=== PATIENT | female | born 1980 | race African-American/Black ===

== ENCOUNTER → 2018-11-24 | Day surgery (SDC) | payer BC ==
[~2018-11-24] MED LIST: ACETAMINOPHEN/CODEINE 300MG - 30MG TAB ONE; CEFAZOLIN SOD 1 GM/NS 50ML 50 ML IV ONE; DEXAMETHASONE SOD PHOS INJ 4 MG/ML VIAL ONE; FENTANYL CITRATE/PF 100MCG/2 ML INJ ONE; HYDROMORPHONE 2MG/ML 2 MG/ML ML ONE; IBUPROFEN400 MG PO; KETOROLAC TROMETHAMINE 30 MG/ML VIAL ONE; LEVOTHYROXINE112 MCG PO; LIDOCAINE HCL 2% LOCAL INJ 5 ML SDV VIAL INJ ONE; MIDAZOLAM HCL 2 MG/2 ML VIAL ONE; OMEPRAZOLE40 MG PO; ONDANSETRON HCL INJ 2MG/ML 2ML 2 MG/ML VIAL ONE; PROPOFOL IV EMULSION 10 MG/ML 20 ML VIAL ONE; SEVOFLURANE INHAL SOLN 250 ML PEN BTL ONE; TYLENOL WITH C1 EACH PO
--- OUTSIDE RECORDS SUMMARY | 2018-11-24 07:27 | XMS REPORT | Clinical Summary ---
Author Author [facility] Address Unknown Phone Unavailable Care Team Providers Care Workcell Operator Name Role Phone Dann Mak PCP Allergies Comments Active Allergy Reactions Severity Noted Date Sodium Chloride Hives, Low 02/12/2016 Swelling, Rash Medications End Date Status Medication Sig Dispensed Refills Start Date Active multivitamin capsule Take 1 0 capsule by mouth daily. Active cholecalciferol, vitamin Take 50,000 0 D3, 50,000 unit Tab Units by mouth once a week. Active b complex vitamins tablet Take 1 tablet 0 by mouth daily. Active levothyroxine (SYNTHROID, Take 175 mcg 0 LEVOTHROID) 175 MCG by mouth tablet Every morning on an empty stomach. Active omeprazole (PRILOSEC) 40 Take 40 mg by 0 MG capsule mouth daily. Active levocetirizine (XYZAL) 5 Take 5 mg by 0 MG tablet mouth daily. Active Problems Problem Noted Date Lesion of vocal cord 09/17/2016 LEVAR (obstructive sleep apnea) 06/06/2016 Thyroid cancer 02/20/2016 Social History Date Tobacco Use Types Packs/Day Years Used Never Smoker Smokeless Tobacco: Never Used Alcohol Use Drinks/Week oz/Week Comments No Sex Assigned at Date Recorded Not on file Industry Job Start Date Occupation Not on file Not on file Not on file Travel End Travel History Travel Start No recent travel history available. Last Filed Vital Signs Not on file Plan of Treatment Not on file Results Not on fileafter 11/23/2017 Insurance Payer Benefit Subscriber ID Type Phone Address Plan / Group [employer] xxxxxxxxxxxx PPO [phone] [id number] POS/PPO/[place] [address] O (Work) Advance Directives For more information, please contact: [facility] [address] [place] [address] Date Inactivated Comments Code Status Date Activated 06/08/2016 5:03 PM Full Code 06/06/2016 5:36 PM This code status was determined by: Patient 02/21/2016 4:26 PM Full Code 02/20/2016 6:59 PM This code status was determined by: Patient
--- OUTSIDE RECORDS SUMMARY | 2018-11-24 07:27 | XMS REPORT | Continuity of Care Document ---
Author Author [facility] Interface Address Unknown Phone Unavailable Problems Problem Status Onset Date Classification Date Reported Comments Source Spasm of back muscles 07/10/2018 Diagnosis 07/10/2018 [facility] Acid Reflux 07/10/2018 Problem 07/10/2018 [facility] Thyroidectomy 07/10/2018 Problem 07/10/2018 [facility] N20.0 CALCULUS OF KIDNEY Active 05/15/2017 [facility] Acid reflux<sup>1</sup> Active 02/06/2017 Problem 05/18/2017 occassional [facility] Hypothyroid Resolved 02/06/2017 Problem 05/18/2017 [facility] Morbid obesity Active 02/06/2017 Problem 05/18/2017 [facility] Seasonal allergies Resolved 02/06/2017 Problem 05/18/2017 [facility] Thyroid cancer<sup>2</sup> Resolved 09/08/2015 Problem 05/18/2017 removed [facility] MORBID OBESITY Active 08/08/2015 [facility] Nephrolithiasis Active Problem 05/18/2017 [facility] CALCULUS OF KIDNEY Active [facility] Medications Medication Details Route Status Patient Instructions Ordering Provider Order Date Source simethicone 80 mg oral tablet, chewable 80 mg=1 tab, CHEW, QID, X 5 day, # 20 tab, 0 Refill(s) Active 02/07/2017 [facility] Ondansetron 8 MG Disintegrating Tablet [Zofran] 8 mg=1 tab, PO, TID, PRN Nausea and Vomiting, Dissolve tab under tongue, X 4 day, # 10 tab, 0 Refill(s) Active 02/07/2017 [facility] Tylenol with Codeine 120 mg-12 mg/5 mL oral liquid 15 ml, PO, Q4H, PRN Pain, X 7 day, # 630 mL, 0 Refill(s) Active 02/07/2017 [facility] Simethicone 80 mg, 1.2 mL, Route: PO, Drug form: DROP, Q6H, Dosing Weight 130, kg, PRN Gas, Start date: 02/07/17 13:19:00 CDT, Duration: 30 day, Stop date: 03/09/17 13:18:00 CDTNotes: (Same as: Mylicon, Phazyme, Genasyme) Inactive 02/07/2017 [facility] Simethicone 40 mg, Route: PO, Drug form: DROP, Q6H, Dosing Weight 130, kg, PRN Gas, Start date: 02/07/17 8:33:00 CDT, Duration: 30 day, Stop date: 03/09/17 8:32:00 CDT Inactive 02/07/2017 [facility] Zofran ODT 4 mg, 1 tab, Route: PO, Drug form: TABDIS, Q6H, Dosing Weight 130, kg, PRN Nausea, Start date: 02/07/17 8:26:00 CDT, Duration: 30 day, Stop date: 03/09/17 8:25:00 CDTNotes: (Same as: Zofran ODT) Inactive 02/07/2017 [facility] Thyroxine 112 microgram, 1 tab, Route: PO, Drug form: TAB, [id number], Dosing Weight 130, kg, Start date: 02/07/17 6:30:00 CDT, Duration: 30 day, Stop date: 03/08/17 6:30:00 CDTNotes: Take 1 hour before or 2 hours after meal; Enteral feeds may interefere with the absorption of this medication.(Same as:Levothroid) Inactive 02/07/2017 [facility] Enoxaparin 30 mg, 0.3 mL, Route: SUB-Q, Drug form: INJ, [id number], Dosing Weight 130, kg, Start date: 02/07/17 0:59:00 CDT, Duration: 30 day, Stop date: 03/08/17 12:59:00 CDTNotes: (Same as: Lovenox) Inactive 02/07/2017 [facility] CeleBREX 200 mg, 1 cap, Route: PO, Drug form: CAP, [id number], Dosing Weight 130, kg, Start date: 02/06/17 18:30:00 CDT, Duration: 30 day, Stop date: 03/08/17 6:30:00 CDTNotes: NSAID. Please check indication. Not for seizure. (Same As: CeleBREX) No Longer Active 02/06/2017 [facility] Ketorolac 30 mg, Route: IVP, Q6H, Dosing Weight 130, kg, Start date: 02/06/17 18:00:00 CDT, Duration: 6 doses or times, Stop date: 02/08/17 0:00:00 CDT Inactive 02/06/2017 [facility] Ondansetron 4 mg, 2 mL, Route: IVP, Drug form: INJ, Q6H, Dosing Weight 130, kg, Start date: 02/06/17 18:00:00 CDT, Duration: 30 day, Stop date: 03/08/17 12:00:00 CDTNotes: (Same as: Zofran) MEDICATION WASTE Product Size: 4 mg Product Wasted: ___ mg No Longer Active 02/06/2017 [facility] Tylenol 1,000 mg, 31.23 mL, Route: PO, Drug form: LIQ, Q6Hnow, Dosing Weight 130, kg, Start date: 02/06/17 17:30:00 CDT, Duration: 30 day, Stop date: 03/08/17 11:30:00 CDTNotes: Max vxafzvahihthj=0078de/day (4 gm/day). (Same as: Tylenol) No Longer Active 02/06/2017 [facility] Simethicone 80 mg, 1.2 mL, Route: CHEW, Drug form: DROP, TID, Dosing Weight 130, kg, PRN Gas, Start date: 02/06/17 16:43:00 CDT, Stop date: 03/08/17 16:42:00 CDTNotes: (Same as: Mylicon, Phazyme, Genasyme) No Longer Active 02/06/2017 [facility] Acetazolamide 250 mg, Route: IVP, ONCE, Dosing Weight 130, kg, Start date: 02/06/17 15:05:00 CDT, Stop date: 02/06/17 15:05:00 CDTNotes: (Same as: Diamox) Inactive 02/06/2017 [facility] celecoxib 200 mg, 1 cap, Route: PO, Drug form: CAP, [id number], Dosing Weight 130, kg, Start date: 02/06/17 15:00:00 CDT, Duration: 30 day, Stop date: 03/08/17 3:00:00 CDTNotes: NSAID. Please check indication. Not for seizure. (Same As: CeleBREX) Inactive 02/06/2017 [facility] gabapentin 300 mg, 6 mL, Route: PO, Drug form: SOLN, Q8Hnow, Dosing Weight 130, kg, Start date: 02/06/17 15:00:00 CDT, Duration: 30 day, Stop date: 03/08/17 7:00:00 CDTNotes: (Same as: Neurontin) No Longer Active 02/06/2017 [facility] Acetaminophen 1,000 mg, 31.23 mL, Route: PO, Drug form: LIQ, Q6Hnow, Dosing Weight 130, kg, Start date: 02/06/17 15:00:00 CDT, Duration: 30 day, Stop date: 03/08/17 9:00:00 CDTNotes: Max babhtwodwtozr=3851zn/day (4 gm/day). (Same as: Tylenol) Inactive 02/06/2017 [facility] Fentanyl 25 microgram, Route: IV, Q5Min, Dosing Weight 130, kg, Start date: 02/06/17 14:45:00 CDT, Duration: 4 doses or times, Stop date: 02/06/17 15:00:00 CDT Inactive 02/06/2017 [facility] Tramadol 50 mg, Route: PO, Drug form: TAB, Q6H, Dosing Weight 130, kg, PRN Pain Score 1-3, Start date: 02/06/17 14:39:00 CDT, Duration: 30 day, Stop date: 03/08/17 14:38:00 CDT Inactive 02/06/2017 [facility] Tramadol 50 mg, Route: PO, Drug form: TAB, Q4H, Dosing Weight 130, kg, PRN Pain Score 1-3, Start date: 02/06/17 14:27:00 CDT, Duration: 30 day, Stop date: 03/08/17 14:26:00 CDT Inactive 02/06/2017 [facility] Promethazine 12.5 mg, 0.5 mL, Route: IM, Drug form: INJ, Q6H, Dosing Weight 130, kg, PRN Nausea & Vomiting, Start date: 02/06/17 14:27:00 CDT, Duration: 30 day, Stop date: 03/08/17 14:26:00 CDTNotes: Do not give IV push. (Same as: Phenergan) No Longer Active 02/06/2017 [facility] Ondansetron 4 mg, 2 mL, Route: IVP, Drug form: INJ, Q6H, Dosing Weight 130, kg, PRN Nausea & Vomiting, Start date: 02/06/17 12:58:00 CDT, Duration: 30 day, Stop date: 03/08/17 12:57:00 CDTNotes: (Same as: Zofran) MEDICATION WASTE Product Size: 4 mg Product Wasted: ___ mg No Longer Active 02/06/2017 [facility] enalaprilat 1.25 mg, 1 mL, Route: IVP, Drug form: INJ, Q6H, Dosing Weight 130, kg, PRN Hypertension, Start date: 02/06/17 12:58:00 CDT, Duration: 30 day, Stop date: 03/08/17 12:57:00 CDT, BP Systolic greater than 1 90 and BP Siastolic greater than 100Notes: (Same as: Vasotec-IV) No Longer Active 02/06/2017 [facility] Calcium Chloride 0.0014 MEQ/ML / Potassium Chloride 0.004 MEQ/ML / Sodium Chloride 0.103 MEQ/ML / Sodium Lactate 0.028 MEQ/ML Injectable Solution 1,000 mL, Rate: 125 ml/hr, Infuse over: 8 hr, Route: IV, Dosing Weight 130 kg, Total Volume: 1,000, Start date: 02/06/17 12:58:00 CDT, Duration: 30 day, Stop date: 03/08/17 12:57:00 CDT No Longer Active 02/06/2017 [facility] ondansetron (ANES) Route: IV, Drug form: INJ, ONCE, Stop date: 02/06/17 12:45:00 CDT Inactive 02/06/2017 [facility] ketOROLAC (ANES) IV, ONCE Inactive 02/06/2017 [facility] famotidine (ANES) Route: IV, Drug form: INJ, ONCE, Stop date: 02/06/17 12:15:00 CDT Inactive 02/06/2017 [facility] dexamethasone (ANES) Route: IV, Drug form: INJ, ONCE, Stop date: 02/06/17 12:15:00 CDT Inactive 02/06/2017 [facility] lidocaine (ANES) Route: IV, Drug form: INJ, ONCE, Stop date: 02/06/17 12:10:00 CDT Inactive 02/06/2017 [facility] propofol (ABRAZO [place]) Route: IV, Drug form: INJ, ONCE, Stop date: 02/06/17 12:10:00 CDT Inactive 02/06/2017 [facility] rocuronium (ANES) Route: IV, Drug form: INJ, ONCE, Stop date: 02/06/17 12:10:00 CDT Inactive 02/06/2017 [facility] fentaNYL (ANES) Route: IV, Drug form: INJ, ONCE, Stop date: 02/06/17 12:10:00 CDT Inactive 02/06/2017 [facility] midazolam (ABRAZO [place]USS) Route: IV, Drug form: SOLN, ONCE, Stop date: 02/06/17 12:10:00 CDT Inactive 02/06/2017 [facility] cefOXitin (ANES) Route: IV, Drug form: INJ, ONCE, Stop date: 02/06/17 12:00:00 CDT Inactive 02/06/2017 [facility] ketAMINE (ANES) Route: IV, Drug form: INJ, ONCE, Stop date: 02/06/17 12:00:00 CDT Inactive 02/06/2017 [facility] Ondansetron 4 mg, Route: IVP, ONCE, Dosing Weight 130, kg, PRN Nausea & Vomiting, Start date: 02/06/17 11:49:00 CDT Inactive 02/06/2017 [facility] Promethazine 6.25 mg, Route: IVPB, ONCE, Dosing Weight 130, kg, PRN Nausea & Vomiting, Start date: 02/06/17 11:49:00 CDT Inactive 02/06/2017 [facility] Flumazenil 0.2 mg, Route: IVP, PRN, Dosing Weight 130, kg, PRN Benzodiazepine Reversal, Initial dose, Start date: 02/06/17 11:49:00 CDT, Duration: 30 day, Stop date: 03/08/17 11:48:00 CDT Inactive 02/06/2017 [facility] Naloxone 0.4 mg, Route: IVP, Q2MIN, Dosing Weight 130, kg, PRN Narcotic Reversal, Start date: 02/06/17 11:49:00 CDT, Duration: 8 doses or times, Stop date: Limited # of times Inactive 02/06/2017 [facility] Fentanyl 25 microgram, Route: IVP, Q5Min, Dosing Weight 130, kg, PRN Pain Score 4-6, Priority: Routine, Start date: 02/06/17 11:49:00 CDT, Duration: 4 doses or times, Stop date: Limited # of times Inactive 02/06/2017 [facility] acetaminophen (ANES) (ANES) Route: IV, Drug form: INJ, Start date: 02/06/17 11:30:00 CDT, Stop date: 02/06/17 12:30:00 CDT Inactive 02/06/2017 [facility] dexmedetomidine (ANES) (ANES) Route: IV, Drug form: INJ, Start date: 02/06/17 11:20:00 CDT, Stop date: 02/06/17 12:20:00 CDT Inactive 02/06/2017 [facility] LR 1000 mL INJ (ANES) Route: IV, Total Volume: 1,000, Start date: 02/06/17 11:05:00 CDT, Stop date: 02/06/17 12:05:00 CDT Inactive 02/06/2017 [facility] 72 HR Scopolamine 0.0139 MG/HR Transdermal Patch 1 patch, Route: TOP, Drug Form: ERFILM, Dosing Weight 136.818, kg, PRE OP, NOW, Start date: 02/06/17 10:23:00 CDT, Duration: 1 doses or times, Stop date: 02/07/17 0:00:00 CDTNotes: Change patch every 72 hours (Same as: Transderm-Scop) Inactive 02/06/2017 [facility] Emend 40 mg, 1 cap, Route: PO, Drug form: CAP, ONCE, Dosing Weight 136.818, kg, Start date: 02/06/17 10:20:00 CDT, Stop date: 02/06/17 10:20:00 CDTNotes: Same as: Emend restricted to the Hematology/Oncology service for high and moderate emetogenic regimen according to ASCO Guidelines Passthrough Only for Chemotherapy-Induced nausea & vomiting Inactive 02/06/2017 [facility] Lovenox 40 mg, 0.4 mL, Route: SUB-Q, Drug form: INJ, ONCALL, Start date: 02/06/17 6:00:00 CDT, Duration: 1 doses or times, Stop date: 02/06/17 23:00:00 CDTNotes: (Same as: Lovenox) Inactive 02/06/2017 [facility] Mefoxin 2 gm, Route: IVPB, Drug form: INJ, ONCALL, Start date: 02/06/17 6:00:00 CDT, Duration: 1 doses or times, Stop date: 02/06/17 23:00:00 CDT, ABX Indication: Surgical ProphylaxisNotes: (Same As: Mefoxin) MEDICATION WASTE Product Size: 2000 mg Product Wasted: ___ mg Inactive 02/06/2017 [facility] Vitamin D3 50,000 intl units oral capsule 50,000 IntlUnit=1 cap, PO, qWeek, # 12 cap, 0 Refill(s) No Longer Active 01/28/2017 [facility] levothyroxine 112 mcg (0.112 mg) oral capsule 112 microgram=1 cap, PO, Daily, # 30 cap, 3 Refill(s) Active 01/28/2017 [facility] desloratadine 5 MG Oral Tablet 5 mg=1 tab, PO, Daily, 0 Refill(s) No Longer Active 01/28/2017 [facility] Cyclobenzaprine hydrochloride 10 MG Oral Tablet cyclobenzaprine 10 mg tablet Take 1 tablet 3 times a day by oral route with meals for 30 days. Active [facility] Levothyroxine Sodium 0.15 MG Oral Tablet levothyroxine 150 mcg tablet Take 1 tablet every day by oral route. Active [facility] Medrol (Altaf) 4 mg tablets in a dose pack Medrol (Altaf) 4 mg tablets in a dose pack Take 1 dose pk by oral route as directed. Active [facility] Omeprazole 40 MG Delayed Release Oral Capsule omeprazole 40 mg capsule,delayed release Take 1 capsule every day by oral route. Active [facility] Allergies, Adverse Reactions, Alerts Substance Category Reaction Severity Reaction type Status Date Reported Comments Source Afrin (Oxymetazoline) Allergy to substance 07/10/2018 [facility] Afrin Assertion Drug allergy Active [facility] Immunizations Immunization Date Given Site Status Last Updated Comments Source influenza, injectable, quadrivalent 05/09/2018 completed [facility] Tdap 09/08/2013 completed [facility] Results Order Name Results Value Reference Range Date Interpretation Comments Source Renal Stone CT Renal Stone CT Study: Renal Stone CT Clinical Indication: renal stone, left flank pain for two days Comparison: None Technique: Axial images with sagittal and coronal reconstructions were obtained without contrast, utilizing a renal stone protocol. CT Radiation Dose: SVB=8259.15 mGy-cm. FINDINGS: No urinary tract calculus, hydronephrosis or perinephric stranding is noted. Retroaortic left renal vein is noted. The lung bases are clear. There is fatty infiltration of the liver. The gallbladder, common duct and spleen appear normal. The adrenals and pancreas are normal. Gastric bypass surgery has been performed. No intestinal lesion or mesenteric inflammatory change is noted. The uterus, adnexa and small volume urinary bladder are not remarkable. No adenopathy or ascites is seen. IMPRESSION: 1. No urinary tract pathology. 2. Fatty liver. 2. Gastric bypass. Attempt to call the office with a report was unsuccessful. SL: [id number] 05/15/2017 - - Read by: Ti Bearden MD Dictated Date/time: 05/15/17 13:19 Electronically Signed by: Ti Bearden MD 05/15/17 13:57 FINAL REPORT [facility] CHEM PANEL eGFR 132 mL/min/1.73m2 02/07/2017 Result Comment: The eGFR is calculated using the CKD-EPI formula. In most young, healthy individuals the eGFR will be >90 mL/min/1.73m2. The eGFR declines with age. An eGFR of 60-89 may be normal in some populations, particularly the elderly, for whom the CKD-EPI formula has not been extensively validated. Use of the eGFR is not recommended in the following populations: Individuals with unstable creatinine concentrations, including patients and those with serious co-morbid conditions. Patients with extremes in muscle mass or diet. The data above are obtained from the National Kidney Disease Education Program (NKDEP) which additionally recommends that when the eGFR is used in patients with extremes of body mass index for purposes of drug dosing, the eGFR should be multiplied by the estimated BMI. [facility] CHEM PANEL Calcium Lvl 9.4 mg/dL 8.5 - 10.5 02/07/2017 [facility] CHEM PANEL CO2 20 meq/L 24 - 32 02/07/2017 [facility] CHEM PANEL Sodium Lvl 134 meq/L 135 - 145 02/07/2017 [facility] CHEM PANEL Creatinine Lvl 0.66 mg/dL 0.50 - 1.40 02/07/2017 [facility] CHEM PANEL BUN 6 mg/dL 7 - 22 02/07/2017 [facility] CHEM PANEL Glucose Lvl 106 mg/dL 70 - 99 02/07/2017 [facility] CHEM PANEL Chloride Lvl 107 meq/L 95 - 109 02/07/2017 [facility] CHEM PANEL Potassium Lvl 4.0 meq/L 3.5 - 5.1 02/07/2017 [facility] CHEM PANEL AGAP 11.0 meq/L 10.0 - 20.0 02/07/2017 [facility] HEMATOLOGY MCV 72.7 fL 80.0 - 98.0 02/07/2017 [facility] HEMATOLOGY Hct 33.8 % 36.0 - 48.0 02/07/2017 [facility] HEMATOLOGY MCHC 31.9 g/dL 32.0 - 36.0 02/07/2017 [facility] HEMATOLOGY MCH 23.2 pg 27.0 - 31.0 02/07/2017 [facility] HEMATOLOGY RDW 16.7 % 11.5 - 14.5 02/07/2017 [facility] HEMATOLOGY MPV 8.8 fL 7.4 - 10.4 02/07/2017 [facility] HEMATOLOGY Hgb 10.8 g/dL 12.0 - 16.0 02/07/2017 [facility] HEMATOLOGY RBC 4.65 M/CMM 4.20 - 5.40 02/07/2017 [facility] HEMATOLOGY Platelet 376 K/CMM 133 - 450 02/07/2017 [facility] HEMATOLOGY WBC 10.2 K/CMM 3.7 - 10.4 02/07/2017 [facility] HEMATOLOGY Segs-Bands # 9.2 K/CMM 1.5 - 8.1 02/07/2017 [facility] HEMATOLOGY Basophils 0.1 % 0.0 - 1.0 02/07/2017 [facility] HEMATOLOGY Segs 90.5 % 45.0 - 75.0 02/07/2017 [facility] HEMATOLOGY Monocytes 3.3 % 2.0 - 12.0 02/07/2017 [facility] HEMATOLOGY Lymphocytes 6.1 % 20.0 - 40.0 02/07/2017 [facility] HEMATOLOGY Monocytes # 0.3 K/CMM 0.0 - 0.8 02/07/2017 [facility] HEMATOLOGY Lymphocytes # 0.6 K/CMM 1.0 - 5.5 02/07/2017 [facility] HEMATOLOGY Microcyte 2+ *ABN* (02/07/17 3:04 AM) None Seen 02/07/2017 [facility] BLOOD BANK RESULTS Antibody Scrn Negative (02/06/17 10:30 AM) 02/06/2017 [facility] BLOOD BANK RESULTS ABO/Rh B POS 02/06/2017 [facility] CHEM PANEL B/C Ratio 13 6 - 25 01/28/2017 [facility] CHEM PANEL A/G Ratio 0.8 0.7 - 1.6 01/28/2017 [facility] CHEM PANEL Globulin 4.2 g/dL 2.7 - 4.2 01/28/2017 [facility] CHEM PANEL AGAP 13.1 meq/L 10.0 - 20.0 01/28/2017 [facility] CHEM PANEL eGFR 139 mL/min/1.73m2 01/28/2017 Result Comment: The eGFR is calculated using the CKD-EPI formula. In most young, healthy individuals the eGFR will be >90 mL/min/1.73m2. The eGFR declines with age. An eGFR of 60-89 may be normal in some populations, particularly the elderly, for whom the CKD-EPI formula has not been extensively validated. Use of the eGFR is not recommended in the following populations: Individuals with unstable creatinine concentrations, including patients and those with serious co-morbid conditions. Patients with extremes in muscle mass or diet. The data above are obtained from the National Kidney Disease Education Program (NKDEP) which additionally recommends that when the eGFR is used in patients with extremes of body mass index for purposes of drug dosing, the eGFR should be multiplied by the estimated BMI. [facility] CHEM PANEL Alk Phos 108 unit/L 39 - 136 01/28/2017 [facility] CHEM PANEL Bili Total 0.4 mg/dL 0.2 - 1.3 01/28/2017 [facility] CHEM PANEL Chloride Lvl 103 meq/L 95 - 109 01/28/2017 [facility] CHEM PANEL Sodium Lvl 139 meq/L 135 - 145 01/28/2017 [facility] CHEM PANEL BUN 7 mg/dL 7 - 22 01/28/2017 [facility] CHEM PANEL Potassium Lvl 4.1 meq/L 3.5 - 5.1 01/28/2017 [facility] CHEM PANEL AST 19 unit/L 0 - 37 01/28/2017 [facility] CHEM PANEL Albumin Lvl 3.4 g/dL 3.5 - 5.0 01/28/2017 [facility] CHEM PANEL Creatinine Lvl 0.55 mg/dL 0.50 - 1.40 01/28/2017 [facility] CHEM PANEL Glucose Lvl 94 mg/dL 70 - 99 01/28/2017 [facility] CHEM PANEL ALT 31 unit/L 0 - 65 01/28/2017 [facility] CHEM PANEL Calcium Lvl 8.6 mg/dL 8.5 - 10.5 01/28/2017 [facility] CHEM PANEL Total Protein 7.6 g/dL 6.4 - 8.4 01/28/2017 [facility] CHEM PANEL CO2 27 meq/L 24 - 32 01/28/2017 [facility] HEMATOLOGY Microcyte 2+ *ABN* (01/28/17 1:00 PM) None Seen 01/28/2017 [facility] HEMATOLOGY Monocytes # 0.5 K/CMM 0.0 - 0.8 01/28/2017 [facility] HEMATOLOGY Lymphocytes # 1.5 K/CMM 1.0 - 5.5 01/28/2017 [facility] HEMATOLOGY Segs-Bands # 5.1 K/CMM 1.5 - 8.1 01/28/2017 [facility] HEMATOLOGY Basophils 0.4 % 0.0 - 1.0 01/28/2017 [facility] HEMATOLOGY Eosinophils 4.2 % 0.0 - 4.0 01/28/2017 [facility] HEMATOLOGY Eosinophils # 0.3 K/CMM 0.0 - 0.5 01/28/2017 [facility] HEMATOLOGY Monocytes 6.1 % 2.0 - 12.0 01/28/2017 [facility] HEMATOLOGY Lymphocytes 20.0 % 20.0 - 40.0 01/28/2017 [facility] HEMATOLOGY Segs 69.3 % 45.0 - 75.0 01/28/2017 [facility] HEMATOLOGY WBC 7.4 K/CMM 3.7 - 10.4 01/28/2017 [facility] HEMATOLOGY RBC 4.35 M/CMM 4.20 - 5.40 01/28/2017 [facility] HEMATOLOGY MCH 23.0 pg 27.0 - 31.0 01/28/2017 [facility] HEMATOLOGY MCV 72.3 fL 80.0 - 98.0 01/28/2017 [facility] HEMATOLOGY Hct 31.4 % 36.0 - 48.0 01/28/2017 [facility] HEMATOLOGY Hgb 10.0 g/dL 12.0 - 16.0 01/28/2017 [facility] HEMATOLOGY Platelet 337 K/CMM 133 - 450 01/28/2017 [facility] HEMATOLOGY RDW 16.1 % 11.5 - 14.5 01/28/2017 [facility] HEMATOLOGY MCHC 31.7 g/dL 32.0 - 36.0 01/28/2017 [facility] HEMATOLOGY MPV 8.4 fL 7.4 - 10.4 01/28/2017 [facility] SPECIAL CHEMISTRY Hgb A1C 5.8 % <=5.6 % 01/28/2017 [facility] Vital Signs Vital Sign Value Date Comments Source Diastolic (mm Hg) 70 07/10/2018 [facility] Height 60 07/10/2018 [facility] Systolic (mm Hg) 112 07/10/2018 [facility] Weight 203 07/10/2018 [facility] Respitory Rate 16 02/07/2017 [facility] Systolic (mm Hg) 111 02/07/2017 [facility] Diastolic (mm Hg) 76 02/07/2017 [facility] Respitory Rate 18 02/07/2017 [facility] Heart Rate 78 02/07/2017 [facility] Temperature Oral (F) 98.0 F 02/07/2017 [facility] Respitory Rate 18 02/07/2017 [facility] Systolic (mm Hg) 118 02/07/2017 [facility] Diastolic (mm Hg) 76 02/07/2017 [facility] Heart Rate 72 02/07/2017 [facility] Temperature Oral (F) 97.5 F 02/07/2017 [facility] Heart Rate 74 02/07/2017 [facility] Systolic (mm Hg) 106 02/07/2017 [facility] Diastolic (mm Hg) 69 02/07/2017 [facility] Temperature Oral (F) 97.6 F 02/07/2017 [facility] BMI Calculated 47.69 02/06/2017 [facility] [facility] 130 02/06/2017 [facility] Height 165.1 cm 02/06/2017 [facility] Weight 130 02/06/2017 [facility] BMI Calculated 47.69 02/06/2017 [facility] Height 165.1 cm 02/06/2017 [facility] Height 165.1 cm 01/28/2017 [facility] BMI Calculated 50.19 01/28/2017 [facility] Weight 136.818 01/28/2017 [facility] Encounters Location Location Details Encounter Type Encounter Number Reason For Visit Attending Provider ADM Date DC Date Status Source [facility] Inpatient [id number] Shane Tobias 02/06/2017 02/07/2017 [facility] Outpatient [id number] CHRISTOFER CASTELLON 05/15/2017 Active [facility] Outpatient [id number] Christofer Castellon 05/15/2017 05/16/2017 [facility] - [id number] Niño, [employer]ER [employer]STER-C: [address] [place] [address], Ph. [id number] Funmi Niño 07/10/2018 [facility] Procedures Procedure Code Date Perfomer Comments Source section<sup>1</sup> 77723042 times 2 [facility] Lymph node operation [id number] [facility] Radiation oncology AND/OR radiotherapy [id number] [facility] Thyroidectomy [id number] [facility] Tubal ligation [id number] [facility] section<sup>1</sup> [id number] times 2 [facility] Lymph node operation [id number] [facility] Radiation oncology AND/OR radiotherapy [id number] [facility] Thyroidectomy [id number] [facility] Tubal ligation [id number] [facility]
--- OUTSIDE RECORDS SUMMARY | 2018-11-24 07:28 | XMS REPORT ---
Author Author [facility] Address Unknown Phone Unavailable Care Team Providers Care [employer] Manager Name Role Phone Balbina RODRIGUEZ Unavailable Unavailable Problems This patient has no known problems. Allergies, Adverse Reactions, Alerts This patient has no known allergies or adverse reactions. Medications This patient has no known medications. Encounters Start Date/Time End Date/Time Encounter Type Admission Type Attending Clinicians Care Facility Care Department Encounter ID 2018-01-09 08:56:00 2018-02-09 23:59:00 Outpatient C GREG RODRIGUEZ [facility] [place] [id number] Results Test Description Test Time Test Comments Text Results Atomic Results Result Comments CT NECK SOFT TIS W CLINICAL INDICATION: R59.0 Localized enlarged lymph nodesMODALITY: [employer] [address] (Iterative dose reduction technique is used).TECHNIQUE: Contrast enhanced helical scans through the neck from the skull base to the thoracic inlet were performed. IV contrast, 90 ml optiray 320 was administered.IMPRESSION:1. Status post right thyroidectomy.2. Several small right level II and level lymph nodes, none of these are suspiciously enlarged and may be reactive. There is some stranding in the right neck likely related to postoperative changes. These lymph nodes correspond to the area of palpable finding. Short-term follow-up of these lymph nodes may be helpful.3. Calcified structure along the extra-axial right frontal region abutting the falx measuring approximately 8 x 9 mm likely representing a small calcified meningioma. MRI correlation may be helpful.4. Mucosal thickening/mucous retention cysts of the maxillary floors.FINDINGS:COMPARISON: NoneCalcified structure along the extra-axial right frontal region along the interval seen region abutting the falx measuring approximately 8 x 9 mm likely representing a small calcified meningioma. No other suspicious intracranial abnormalities. No evidence of abnormal enhancement of the visualized portions of the intracranial contents. In the region of the marker along the right posterior neck there is a level IV lymph node measuring 5 mm in short axis. There are surgical clips along the right posterior cervical triangle and right jugular region likely the site of prior lymph node dissection.The labor conciliator spaces, parapharyngeal spaces, base of tongue, epiglottis, pre-epiglottic region and vocal cords are unremarkable.There is a marker overlying the right neck posteriorly. There are several small scattered level II lymph nodes. There is a right occipital lymph node as well measuring 5 mm in short axis.The major salivary glands including parotid and submandibular glands are normal.Surgical clip of the right thyroid bed. Status post right thyroidectomies. Small amount of left thyroid tissueThere is no significant adenopathy in the neck, supraclavicular fossa, axilla or superior mediastinum.The regional skeleton is u nremarkable.The visualized skull base is intact.Small mucous retention cyst/mucosal thickening of the maxillary floors.PQRS 436: [id number] (For official use only.)
--- OUTSIDE RECORDS SUMMARY | 2018-11-24 07:28 | XMS REPORT | Summary of Care ---
Author Author [facility] Organization [facility] Address Unknown Phone Unavailable Encounter HQ Mauro_olu(FIN) [id number] Date(s): 05/15/17 - 05/15/17 [facility] [address] [place] [address]- [phone] Discharge Disposition: Home or Self Care Attending Physician: Christofer Castellon MD Vital Signs No data available for this section Problem List Condition Effective Dates Status Health Status Informant Acid 02/06/17 Active reflux(Confirmed)1 Hypothyroid(Confirme 02/06/17 Resolved d) Nephrolithiasis(Conf Active irmed) Thyroid < 2015 Resolved cancer(Confirmed)2 Morbid 02/06/17 Active obesity(Confirmed) Seasonal 02/06/17 Resolved allergies(Confirmed) 1occassional 2removed -2015 Allergies, Adverse Reactions, Alerts Substance Reaction Severity Status Afrin Active Medications No data available for this section Results No data available for this section Immunizations No data available for this section Procedures Procedure Date Related Diagnosis Body Site section1 Lymph node operation Radiation oncology AND/OR radiotherapy Thyroidectomy Tubal ligation 1times 2 Social History Social History Type Response Alcohol Never Smoking Status Never smoker; Previous treatment: None; Exposure to Tobacco Smoke None; Cigarette Smoking Last 365 Days No; Reg Smoking Cessation Counseling No Assessment and Plan No data available for this section
--- OUTSIDE RECORDS SUMMARY | 2018-11-24 07:28 | XMS REPORT | Summary of Care ---
Author Author [facility] Organization [facility] Address Unknown Phone Unavailable Encounter SELVIN Allison(HARSH) [id number] Date(s): 02/06/17 - 02/07/17 [facility] [address] [employer] provided by [facility] [place] [address]- Discharge Disposition: Home or Self Care Attending Physician: Shane Tobias MD Admitting Physician: Shane Tobias MD Referring Physician: Shane Tobias MD Vital Signs 1 2 3 Most recent to oldest [Reference Range]: 165.1 cm (02/06/17 3:40 PM) 165.1 cm (02/06/17 10:49 AM) 165.1 cm (01/28/17 3:45 PM) Height 98.0 DegF (02/07/17 3:34 PM) 97.5 DegF (02/07/17 11:52 AM) 97.6 DegF (02/07/17 8:10 AM) Temperature Oral [96.4-99.1 DegF] 111/76 mmHg (02/07/17 3:34 PM) 118/76 mmHg (02/07/17 11:52 AM) 106/69 mmHg (02/07/17 8:10 AM) Blood Pressure [90-140/60-90 mmHg] 16 BRMIN (02/07/17 3:58 PM) 18 BRMIN (02/07/17 3:34 PM) 18 BRMIN (02/07/17 11:52 AM) Respiratory Rate [14-20 BRMIN] 78 bpm (02/07/17 3:34 PM) 72 bpm (02/07/17 11:52 AM) 74 bpm (02/07/17 8:10 AM) Peripheral Pulse Rate [60-100 bpm] 130 kg (02/06/17 3:40 PM) 130 kg (02/06/17 10:49 AM) 136.818 kg (01/28/17 3:45 PM) Weight 47.69 m2 (02/06/17 3:40 PM) 47.69 m2 (02/06/17 10:49 AM) 50.19 m2 (01/28/17 3:45 PM) Body Mass Index Problem List Condition Effective Dates Status Health Status Informant Acid 02/06/17 Active reflux(Confirmed)1 Hypothyroid(Confirme 02/06/17 Resolved d) Thyroid < 2015 Resolved cancer(Confirmed)2 Morbid 02/06/17 Active obesity(Confirmed) Seasonal 02/06/17 Resolved allergies(Confirmed) 1occassional 2removed Allergies, Adverse Reactions, Alerts Substance Reaction Severity Status Afrin Active Medications acetaminophen 1,000 mg, 31.23 mL, Route: PO, Drug form: LIQ, Q6Hnow, Dosing Weight 130, kg, St art date: 02/06/17 15:00:00 CDT, Duration: 30 day, Stop date: 03/08/17 9:00:00 C DT Notes: Max pwsizxhdehkrl=0982hr/day (4 gm/day). (Same as: Tylenol) Start Date: 02/06/17 Stop Date: 02/06/17 Status: Discontinued acetaminophen (ANES) (ANES) Route: IV, Drug form: INJ, Start date: 02/06/17 11:30:00 CDT, Stop date: 7 12:30:00 CDT Start Date: 02/06/17 Stop Date: 02/06/17 Status: Completed ANES fentaNYL 25 microgram, Route: IVP, Q5Min, Dosing Weight 130, kg, PRN Pain Score 4-6, Prio rity: Routine, Start date: 02/06/17 11:49:00 CDT, Duration: 4 doses or times, St op date: Limited # of times Start Date: 02/06/17 Stop Date: 02/06/17 Status: Completed ANES flumazenil 0.2 mg, Route: IVP, PRN, Dosing Weight 130, kg, PRN Benzodiazepine Reversal, Ini tial dose, Start date: 02/06/17 11:49:00 CDT, Duration: 30 day, Stop date: 03/08 11:48:00 CDT Start Date: 02/06/17 Stop Date: 02/06/17 Status: Discontinued ANES naloxone 0.4 mg, Route: IVP, Q2MIN, Dosing Weight 130, kg, PRN Narcotic Reversal, Start d ate: 02/06/17 11:49:00 CDT, Duration: 8 doses or times, Stop date: Limited # of times Start Date: 02/06/17 Stop Date: 02/06/17 Status: Discontinued ANES ondansetron 4 mg, Route: IVP, ONCE, Dosing Weight 130, kg, PRN Nausea & Vomiting, Start date: 02/06/17 11:49:00 CDT Start Date: 02/06/17 Stop Date: 02/06/17 Status: Discontinued ANES promethazine 6.25 mg, Route: IVPB, ONCE, Dosing Weight 130, kg, PRN Nausea & Vomiting, Start date: 02/06/17 11:49:00 CDT Start Date: 02/06/17 Stop Date: 02/06/17 Status: Discontinued cefOXitin (ANES) Route: IV, Drug form: INJ, ONCE, Stop date: 02/06/17 12:00:00 CDT Start Date: 02/06/17 Stop Date: 02/06/17 Status: Completed CeleBREX 200 mg, 1 cap, Route: PO, Drug form: CAP, [id number], Dosing Weight 130, kg, Start date: 02/06/17 18:30:00 CDT, Duration: 30 day, Stop date: 03/08/17 6:30:00 CDT Notes: NSAID. Please check indication. Not for seizure. (Same As: CeleBREX) Start Date: 02/06/17 Stop Date: 02/07/17 Status: Discontinued celecoxib 200 mg, 1 cap, Route: PO, Drug form: CAP, [id number], Dosing Weight 130, kg, Start date: 02/06/17 15:00:00 CDT, Duration: 30 day, Stop date: 03/08/17 3:00:00 CDT Notes: NSAID. Please check indication. Not for seizure. (Same As: CeleBREX) Start Date: 02/06/17 Stop Date: 02/06/17 Status: Discontinued desloratadine 5 mg oral tablet 5 mg=1 tab, PO, Daily, 0 Refill(s) Start Date: 01/28/17 Stop Date: 02/07/17 Status: Discontinued dexamethasone (ANES) Route: IV, Drug form: INJ, ONCE, Stop date: 02/06/17 12:15:00 CDT Start Date: 02/06/17 Stop Date: 02/06/17 Status: Completed dexmedetomidine (ANES) (ANES) Route: IV, Drug form: INJ, Start date: 02/06/17 11:20:00 CDT, Stop date: 7 12:20:00 CDT Start Date: 02/06/17 Stop Date: 02/06/17 Status: Completed Diamox + sodium chloride 0.9% INJ 5 ml 2.5 mL 250 mg, Route: IVP, ONCE, Dosing Weight 130, kg, Start date: 02/06/17 15:05:00 C DT, Stop date: 02/06/17 15:05:00 CDT Notes: (Same as: Diamox) Start Date: 02/06/17 Stop Date: 02/06/17 Status: Completed Emend 40 mg, 1 cap, Route: PO, Drug form: CAP, ONCE, Dosing Weight 136.818, kg, Start date: 02/06/17 10:20:00 CDT, Stop date: 02/06/17 10:20:00 CDT Notes: Same as: Emendrestricted to the Hematology/Oncology service for high and moderate emetogenic regimen according to ASCO Guidelines PassthroughOnly for Ch emotherapy-Induced nausea & vomiting Start Date: 02/06/17 Stop Date: 02/06/17 Status: Completed enalaprilat 1.25 mg, 1 mL, Route: IVP, Drug form: INJ, Q6H, Dosing Weight 130, kg, PRN Hyper tension, Start date: 02/06/17 12:58:00 CDT, Duration: 30 day, Stop date: 7 12:57:00 CDT, BP Systolic greater than 190 and BP Siastolic greater than 100 Notes: (Same as: Vasotec-IV) Start Date: 02/06/17 Stop Date: 02/07/17 Status: Discontinued enoxaparin 30 mg, 0.3 mL, Route: SUB-Q, Drug form: INJ, [id number], Dosing Weight 130, kg, St art date: 02/07/17 0:59:00 CDT, Duration: 30 day, Stop date: 03/08/17 12:59:00 C DT Notes: (Same as: Lovenox) Start Date: 02/07/17 Stop Date: 02/07/17 Status: Discontinued famotidine (ANES) Route: IV, Drug form: INJ, ONCE, Stop date: 02/06/17 12:15:00 CDT Start Date: 02/06/17 Stop Date: 02/06/17 Status: Completed fentaNYL 25 microgram, Route: IV, Q5Min, Dosing Weight 130, kg, Start date: 02/06/17 14:4 5:00 CDT, Duration: 4 doses or times, Stop date: 02/06/17 15:00:00 CDT Start Date: 02/06/17 Stop Date: 02/06/17 Status: Discontinued fentaNYL (ANES) Route: IV, Drug form: INJ, ONCE, Stop date: 02/06/17 12:10:00 CDT Start Date: 02/06/17 Stop Date: 02/06/17 Status: Completed gabapentin 300 mg, 6 mL, Route: PO, Drug form: SOLN, Q8Hnow, Dosing Weight 130, kg, Start d ate: 02/06/17 15:00:00 CDT, Duration: 30 day, Stop date: 03/08/17 7:00:00 CDT Notes: (Same as: Neurontin) Start Date: 02/06/17 Stop Date: 02/07/17 Status: Discontinued ketAMINE (ANES) Route: IV, Drug form: INJ, ONCE, Stop date: 02/06/17 12:00:00 CDT Start Date: 02/06/17 Stop Date: 02/06/17 Status: Completed ketOROLAC 30 mg, Route: IVP, Q6H, Dosing Weight 130, kg, Start date: 02/06/17 18:00:00 CDT , Duration: 6 doses or times, Stop date: 02/08/17 0:00:00 CDT Start Date: 02/06/17 Stop Date: 02/06/17 Status: Canceled ketOROLAC (ANES) IV, ONCE Start Date: 02/06/17 Stop Date: 02/06/17 Status: Completed Lactated Ringers 1,000 mL 1,000 mL, Rate: 125 ml/hr, Infuse over: 8 hr, Route: IV, Dosing Weight 130 kg, T otal Volume: 1,000, Start date: 02/06/17 12:58:00 CDT, Duration: 30 day, Stop da te: 03/08/17 12:57:00 CDT Start Date: 02/06/17 Stop Date: 02/07/17 Status: Discontinued levothyroxine 112 microgram, 1 tab, Route: PO, Drug form: TAB, [id number], Dosing Weight 130, kg, Start date: 02/07/17 6:30:00 CDT, Duration: 30 day, Stop date: 03/08/17 6:30:00 CDT Notes: Take 1 hour before or 2 hours after meal; Enteral feeds may interefere wi th the absorption of this medication.(Same as:Levothroid) Start Date: 02/07/17 Stop Date: 02/07/17 Status: Discontinued levothyroxine 112 mcg (0.112 mg) oral capsule 112 microgram=1 cap, PO, Daily, # 30 cap, 3 Refill(s) Start Date: 01/28/17 Status: Ordered lidocaine (ANES) Route: IV, Drug form: INJ, ONCE, Stop date: 02/06/17 12:10:00 CDT Start Date: 02/06/17 Stop Date: 02/06/17 Status: Completed Lovenox 40 mg, 0.4 mL, Route: SUB-Q, Drug form: INJ, ONCALL, Start date: 02/06/17 6:00:0 0 CDT, Duration: 1 doses or times, Stop date: 02/06/17 23:00:00 CDT Notes: (Same as: Lovenox) Start Date: 02/06/17 Stop Date: 02/06/17 Status: Completed LR 1000 mL INJ (ANES) Route: IV, Total Volume: 1,000, Start date: 02/06/17 11:05:00 CDT, Stop date: 12:05:00 CDT Start Date: 02/06/17 Stop Date: 02/06/17 Status: Completed Mefoxin 2 gm, Route: IVPB, Drug form: INJ, ONCALL, Start date: 02/06/17 6:00:00 CDT, Dur ation: 1 doses or times, Stop date: 02/06/17 23:00:00 CDT, ABX Indication: Surgi steff Prophylaxis Notes: (Same As: Mefoxin) MEDICATION WASTE Product Size: 2000 mgProduct Wasted: ___ mg Start Date: 02/06/17 Stop Date: 02/06/17 Status: Completed midazolam (ANES) Route: IV, Drug form: SOLN, ONCE, Stop date: 02/06/17 12:10:00 CDT Start Date: 02/06/17 Stop Date: 02/06/17 Status: Completed ondansetron 4 mg, 2 mL, Route: IVP, Drug form: INJ, Q6H, Dosing Weight 130, kg, PRN Nausea & Vomiting, Start date: 02/06/17 12:58:00 CDT, Duration: 30 day, Stop date: 03/08 12:57:00 CDT Notes: (Same as: Renetta) MEDICATION WASTE Product Size: 4 mgProduct Was dustin: ___ mg Start Date: 02/06/17 Stop Date: 02/07/17 Status: Discontinued ondansetron 4 mg, 2 mL, Route: IVP, Drug form: INJ, Q6H, Dosing Weight 130, kg, Start date: 02/06/17 18:00:00 CDT, Duration: 30 day, Stop date: 03/08/17 12:00:00 CDT Notes: (Same as: Renetta) MEDICATION WASTE Product Size: 4 mgProduct Was dustin: ___ mg Start Date: 02/06/17 Stop Date: 02/07/17 Status: Discontinued ondansetron (ANES) Route: IV, Drug form: INJ, ONCE, Stop date: 02/06/17 12:45:00 CDT Start Date: 02/06/17 Stop Date: 02/06/17 Status: Completed promethazine 12.5 mg, 0.5 mL, Route: IM, Drug form: INJ, Q6H, Dosing Weight 130, kg, PRN Naus ea & Vomiting, Start date: 02/06/17 14:27:00 CDT, Duration: 30 day, Stop date: 03/08/17 14:26:00 CDT Notes: Do not give IV push. (Same as: Phenergan) Start Date: 02/06/17 Stop Date: 02/07/17 Status: Discontinued propofol (ANES) Route: IV, Drug form: INJ, ONCE, Stop date: 02/06/17 12:10:00 CDT Start Date: 02/06/17 Stop Date: 02/06/17 Status: Completed rocuronium (ANES) Route: IV, Drug form: INJ, ONCE, Stop date: 02/06/17 12:10:00 CDT Start Date: 02/06/17 Stop Date: 02/06/17 Status: Completed scopolamine 1.5 mg transdermal film 1 patch, Route: TOP, Drug Form: ERFILM, Dosing Weight 136.818, kg, PRE OP, NOW, Start date: 02/06/17 10:23:00 CDT, Duration: 1 doses or times, Stop date: 0:00:00 CDT Notes: Change patch every 72 hours (Same as: Transderm-Scop) Start Date: 02/06/17 Stop Date: 02/06/17 Status: Completed simethicone 80 mg, 1.2 mL, Route: CHEW, Drug form: DROP, TID, Dosing Weight 130, kg, PRN Gas , Start date: 02/06/17 16:43:00 CDT, Stop date: 03/08/17 16:42:00 CDT Notes: (Same as: Mylicon, Phazyme, Genasyme) Start Date: 02/06/17 Stop Date: 02/07/17 Status: Discontinued simethicone 80 mg, 1.2 mL, Route: PO, Drug form: DROP, Q6H, Dosing Weight 130, kg, PRN Gas, Start date: 02/07/17 13:19:00 CDT, Duration: 30 day, Stop date: 03/09/17 13:18:0 0 CDT Notes: (Same as: Mylicon, Phazyme, Genasyme) Start Date: 02/07/17 Stop Date: 02/07/17 Status: Discontinued simethicone 40 mg, Route: PO, Drug form: DROP, Q6H, Dosing Weight 130, kg, PRN Gas, Start da te: 02/07/17 8:33:00 CDT, Duration: 30 day, Stop date: 03/09/17 8:32:00 CDT Start Date: 02/07/17 Stop Date: 02/07/17 Status: Deleted simethicone 80 mg oral tablet, chewable 80 mg=1 tab, CHEW, QID, X 5 day, # 20 tab, 0 Refill(s) Start Date: 02/07/17 Stop Date: 02/12/17 Status: Ordered tramadol 50 mg, Route: PO, Drug form: TAB, Q4H, Dosing Weight 130, kg, PRN Pain Score 1-3 , Start date: 02/06/17 14:27:00 CDT, Duration: 30 day, Stop date: 03/08/17 14:26 :00 CDT Start Date: 02/06/17 Stop Date: 02/06/17 Status: Discontinued tramadol 50 mg, Route: PO, Drug form: TAB, Q6H, Dosing Weight 130, kg, PRN Pain Score 1-3 , Start date: 02/06/17 14:39:00 CDT, Duration: 30 day, Stop date: 03/08/17 14:38 :00 CDT Start Date: 02/06/17 Stop Date: 02/06/17 Status: Discontinued tramadol 100 mg, 2 tab, Route: PO, Drug form: TAB, Q6Hnow, Dosing Weight 130, kg, PRN Luis Felipe n Score 7-10, Start date: 02/06/17 14:27:00 CDT, Duration: 30 day, Stop date: 14:26:00 CDT Notes: Not to exceed 400mg/day. (Same As: Ultram) Start Date: 02/06/17 Stop Date: 02/07/17 Status: Discontinued tramadol 50 mg, 1 tab, Route: PO, Drug form: TAB, Q6H, Dosing Weight 130, kg, PRN Pain Sc ore 4-6, Start date: 02/06/17 14:39:00 CDT, Duration: 30 day, Stop date: 7 14:38:00 CDT Notes: Not to exceed 400mg/day. (Same As: Ultram) Start Date: 02/06/17 Stop Date: 02/07/17 Status: Discontinued Tylenol 1,000 mg, 31.23 mL, Route: PO, Drug form: LIQ, Q6Hnow, Dosing Weight 130, kg, St art date: 02/06/17 17:30:00 CDT, Duration: 30 day, Stop date: 03/08/17 11:30:00 CDT Notes: Max fiygwmjylupae=7410bp/day (4 gm/day). (Same as: Tylenol) Start Date: 02/06/17 Stop Date: 02/07/17 Status: Discontinued Tylenol with Codeine 120 mg-12 mg/5 mL oral liquid 15 ml, PO, Q4H, PRN Pain, X 7 day, # 630 mL, 0 Refill(s) Start Date: 02/07/17 Stop Date: 02/14/17 Status: Ordered Vitamin D3 50,000 intl units oral capsule 50,000 IntlUnit=1 cap, PO, qWeek, # 12 cap, 0 Refill(s) Start Date: 01/28/17 Stop Date: 02/07/17 Status: Discontinued Zofran ODT 4 mg, 1 tab, Route: PO, Drug form: TABDIS, Q6H, Dosing Weight 130, kg, PRN Nause a, Start date: 02/07/17 8:26:00 CDT, Duration: 30 day, Stop date: 03/09/17 8:25: 00 CDT Notes: (Same as: Zofran ODT) Start Date: 02/07/17 Stop Date: 02/07/17 Status: Discontinued Zofran ODT 8 mg oral tablet, disintegrating 8 mg=1 tab, PO, TID, PRN Nausea and Vomiting, Dissolve tab under tongue, X 4 day , # 10 tab, 0 Refill(s) Start Date: 02/07/17 Stop Date: 02/11/17 Status: Ordered Results BLOOD BANK RESULTS Most recent to 1 2 oldest [Reference Range]: ABO/Rh B POS *Unknown* (02/06/17 10:30 AM) Antibody Scrn Negative (02/06/17 10:30 AM) ELECTROLYTES Most recent to 1 2 oldest [Reference Range]: Sodium Lvl [135-145 134 mEq/L 139 mEq/L mEq/L] *LOW* (01/28/17 1:00 PM) (02/07/17 3:04 AM) Potassium Lvl 4.0 mEq/L 4.1 mEq/L [3.5-5.1 mEq/L] (02/07/17 3:04 AM) (01/28/17 1:00 PM) Chloride Lvl [95-109 107 mEq/L 103 mEq/L mEq/L] (02/07/17 3:04 AM) (01/28/17 1:00 PM) CO2 [24-32 mEq/L] 20 mEq/L 27 mEq/L *LOW* (01/28/17 1:00 PM) (02/07/17 3:04 AM) AGAP [10.0-20.0 11.0 mEq/L 13.1 mEq/L mEq/L] (02/07/17 3:04 AM) (01/28/17 1:00 PM) CHEM PANEL Most recent to 1 2 oldest [Reference Range]: Creatinine Lvl 0.66 mg/dL 0.55 mg/dL [0.50-1.40 mg/dL] (02/07/17 3:04 AM) (01/28/17 1:00 PM) eGFR 132 mL/min/1.73m2 1 139 mL/min/1.73m2 2 *NA* *NA* (02/07/17 3:04 AM) (01/28/17 1:00 PM) BUN [7-22 mg/dL] 6 mg/dL 7 mg/dL *LOW* (01/28/17 1:00 PM) (02/07/17 3:04 AM) B/C Ratio [6-25] 13 (01/28/17 1:00 PM) Glucose Lvl [70-99 106 mg/dL 94 mg/dL mg/dL] *HI* (01/28/17 1:00 PM) (02/07/17 3:04 AM) Total Protein 7.6 g/dL [6.4-8.4 g/dL] (01/28/17 1:00 PM) Albumin Lvl [3.5-5.0 3.4 g/dL g/dL] *LOW* (01/28/17 1:00 PM) Globulin [2.7-4.2 4.2 g/dL g/dL] (01/28/17 1:00 PM) A/G Ratio [0.7-1.6] 0.8 (01/28/17 1:00 PM) Calcium Lvl 9.4 mg/dL 8.6 mg/dL [8.5-10.5 mg/dL] (02/07/17 3:04 AM) (01/28/17 1:00 PM) ALT [0-65 unit/L] 31 unit/L (01/28/17 1:00 PM) AST [0-37 unit/L] 19 unit/L (01/28/17 1:00 PM) Alk Phos [39-136 108 unit/L unit/L] (01/28/17 1:00 PM) Bili Total [0.2-1.3 0.4 mg/dL mg/dL] (01/28/17 1:00 PM) 1Result Comment: The eGFR is calculated using the [...] from the National Kidney Disease Education Program ( NKDEP) which additionally recommends that when the eGFR is used in patients with extremes of body mass index for purposes of drug dosing, the eGFR should be mul tiplied by the estimated BMI. 2Result Comment: The eGFR is calculated using the [...] from the National Kidney Disease Education Program ( NKDEP) which additionally recommends that when the eGFR is used in patients with extremes of body mass index for purposes of drug dosing, the eGFR should be mul tiplied by the estimated BMI. SPECIAL CHEMISTRY Most recent to 1 2 oldest [Reference Range]: Hgb A1C [<=5.6 %] 5.8 % *HI* (01/28/17 1:00 PM) HEMATOLOGY Most recent to 1 2 oldest [Reference Range]: WBC [3.7-10.4 K/CMM] 10.2 K/CMM 7.4 K/CMM (02/07/17 3:04 AM) (01/28/17 1:00 PM) RBC [4.20-5.40 4.65 M/CMM 4.35 M/CMM M/CMM] (02/07/17 3:04 AM) (01/28/17 1:00 PM) Hgb [12.0-16.0 g/dL] 10.8 g/dL 10.0 g/dL *LOW* *LOW* (02/07/17 3:04 AM) (01/28/17 1:00 PM) Hct [36.0-48.0 %] 33.8 % 31.4 % *LOW* *LOW* (02/07/17 3:04 AM) (01/28/17 1:00 PM) MCV [80.0-98.0 fL] 72.7 fL 72.3 fL *LOW* *LOW* (02/07/17 3:04 AM) (01/28/17 1:00 PM) MCH [27.0-31.0 pg] 23.2 pg 23.0 pg *LOW* *LOW* (02/07/17 3:04 AM) (01/28/17 1:00 PM) MCHC [32.0-36.0 31.9 g/dL 31.7 g/dL g/dL] *LOW* *LOW* (02/07/17 3:04 AM) (01/28/17 1:00 PM) RDW [11.5-14.5 %] 16.7 % 16.1 % *HI* *HI* (02/07/17 3:04 AM) (01/28/17 1:00 PM) Platelet [133-450 376 K/CMM 337 K/CMM K/CMM] (02/07/17 3:04 AM) (01/28/17 1:00 PM) MPV [7.4-10.4 fL] 8.8 fL 8.4 fL (02/07/17 3:04 AM) (01/28/17 1:00 PM) Segs [45.0-75.0 %] 90.5 % 69.3 % *HI* (01/28/17 1:00 PM) (02/07/17 3:04 AM) Lymphocytes 6.1 % 20.0 % [20.0-40.0 %] *LOW* (01/28/17 1:00 PM) (02/07/17 3:04 AM) Monocytes [2.0-12.0 3.3 % 6.1 % %] (02/07/17 3:04 AM) (01/28/17 1:00 PM) Eosinophils [0.0-4.0 4.2 % %] *HI* (01/28/17 1:00 PM) Basophils [0.0-1.0 0.1 % 0.4 % %] (02/07/17 3:04 AM) (01/28/17 1:00 PM) Segs-Bands # 9.2 K/CMM 5.1 K/CMM [1.5-8.1 K/CMM] *HI* (01/28/17 1:00 PM) (02/07/17 3:04 AM) Lymphocytes # 0.6 K/CMM 1.5 K/CMM [1.0-5.5 K/CMM] *LOW* (01/28/17 1:00 PM) (02/07/17 3:04 AM) Monocytes # [0.0-0.8 0.3 K/CMM 0.5 K/CMM K/CMM] (02/07/17 3:04 AM) (01/28/17 1:00 PM) Eosinophils # 0.3 K/CMM [0.0-0.5 K/CMM] (01/28/17 1:00 PM) Microcyte [None 2+ 2+ Seen] *ABN* *ABN* (02/07/17 3:04 AM) (01/28/17 1:00 PM) Immunizations No data available for this section Procedures Procedure Date Related Diagnosis Body Site section1 Lymph node operation Radiation oncology AND/OR radiotherapy Thyroidectomy Tubal ligation 1times 2 Social History Social History Type Response Alcohol Never Smoking Status Never smoker; Previous treatment: None; Exposure to Tobacco Smoke None; Cigarette Smoking Last 365 Days No; Reg Smoking Cessation Counseling No Assessment and Plan Extracted from: Title: APMS Progress Note* Author: Saroj Rodriguez MD Date: 02/07/17 Patient: SARAH LEE Age: 36 years Sex: Female : 1980 Associated Diagnoses: None Author: Saroj Rodriguez MD Basic Information Admit information: Admission Day 0, admitted 02/06/17 . History of Present Illness The patient presents with Pain, currently well controlled. However, major pain complaint is gas pain, currently reports being obstipated.. There were exacerbating factors including movement . There were relieving factors including rest. The severity is mild. The course is progressing as expected. Chief Complaint Pain 2/2 gas pain and obstipation Review / Management Results review: Labs (Last four charted values) WBC 10.2(FEB 07)7.4(JANUARY 28) Hgb L 10.8(FEB 07)L 10.0(JANUARY 28) Hct L 33.8(FEB 07)L 31.4(JANUARY 28) Plt 376(FEB 07)337(JANUARY 28) Na L 134(FEB 07)139(JANUARY 28) K 4.0(FEB 07)4.1(JANUARY 28) CO2 L 20(FEB 07)27(JANUARY 28) Cl 107(FEB 07)103(JANUARY 28) Cr 0.66(FEB 07)0.55(JANUARY 28) BUN L 6(FEB 07)7(JANUARY 28) Glucose Random H 106(FEB 07)94(JANUARY 28) Ca 9.4(FEB 07)8.6(JANUARY 28). Health Status Allergies: Allergies (1) ActiveReaction AfrinNone Documented Current medications: No qualifying data available Review of Systems Constitutional: Negative. Eye: Negative. Respiratory: Negative. Cardiovascular: Negative. Gastrointestinal: Nausea, Constipation, gas pain. Genitourinary: Negative. Hematology/Lymphatics Endocrine: Negative. Musculoskeletal: Negative. Integumentary Neurologic: Negative. Psychiatric: Negative. Objective VS/Measurements Vital Signs (last 24 hrs) Last Charted Temp Oral97.6 DegF (FEB 07 08:10) Heart Rate Iufzarbzlo20 bpm (FEB 07 08:10) Resp Rate 18 BRMIN (FEB 07 08:10) GKZ212 mmHg (FEB 07 08:10) DBP69 mmHg (FEB 07 08:10) SwX3617 % (FEB 07 08:10) Eeobim766 kg (FEB 06 15:40) Unhtmz563.1 cm (FEB 06 15:40) BMI47.69 (FEB 06 15:40) Subjective Problem: Pain Patient states There is no change Plan APMS Plan Discharge from [facility] care: Analgesics per Primary Service. Impression and Plan Education and Follow-up: Counseled: Regarding treatment, Regarding medications. Results Review General results Reviewed Results: Clinical Documents : ALL RESULT SECTIONS(Date Range: 02/07/2017 00:07 - 02/07/2017 09:27) Postoperative Information Surgery Done Procedure Location: Abdomen. Inpatient information Interaction with patient. Observation. Information from RN. Progress Note Date and Time of Visit: 02/07/2017 11:17 Post OP Day #: 1. Peripheral Nerve Block Nerve Block #: 1. Nerve Block Site: b/l subcostal TAP Single shot with Dexamethasone, used 20cc of .25 % marcaine in each block (bilaterally). Current Status Assessment Visual Analog Scale for Pain (VAS 0-10): At Rest: 4, With Activity: 7. Pump Use: None. Level of Sedation: Awake/Alert. Activity: Ambulating. Patient reports the pain is 2/2 gas pain. Numbness Residual Sensory Numbness: Yes. Addendum AMPS consulted by Dr. Tobias by Saroj Rodriguez MD on 02/07/2017 11:41 Addendum TEACHING PHYSICIAN ADDENDUM: I saw and personally examined this patient and discussed the by plan of care with this resident. I have reviewed the note below and agree with the [place], history, examination findings and the plan of care. Wilber Maya MD on 02/08/2017 11:35
--- OUTSIDE RECORDS SUMMARY | 2018-11-24 07:28 | XMS REPORT | Encounter Summary ---
Author Organization Unknown Address [address] [place] [id number] Phone [phone] Reason for Visit Medical Complaint Instructions 1. Spasm of back muscles cyclobenzaprine 10 mg tablet back spasm: care instructions muscle aches: care instructions Medrol (Altaf) 4 mg tablets in a dose pack Discussion Note Provided pt/parent with handout and instructions for aftercare Plan of Care Patient Instructions Muscle Spasm Heat, ice, and medicines To relieve pain, use heat or ice (whichever feels better) on the affected area. Put a warm water bottle, a heating pad set on low, or a warm cloth on your back. Put a thin cloth between the heating pad and your skin. Do not go to sleep with a heating pad on your skin. Try ice or a cold pack on the area for 10 to 20 minutes at a time. Put a thin cloth between the ice and your skin. Ask your doctor if you can take acetaminophen (such as Tylenol) or nonsteroidal anti-inflammatory drugs, such as ibuprofen or naproxen. Your doctor can prescribe stronger medicines if needed. Be safe with medicines. Read and follow all instructions on the label. Body positions and posture Sit or lie in positions that are most comfortable for you and that reduce pain. Try one of these positions when you lie down: Lie on your back with your knees bent and supported by large pillows. Lie on the floor with your legs on the seat of a sofa or chair. Lie on your side with your knees and hips bent and a pillow between your legs. Lie on your stomach if it does not make pain worse. Do not sit up in bed. Avoid soft couches and twisted positions. Avoid bed rest after the first day of back pain. Bed rest can help relieve pain at first, but it delays healing. Continued rest without activity is usually not good for your back. If you must sit for long periods of time, take breaks from sitting. Change positions every 30 minutes. Get up and walk around, or lie in a comfortable position. Activity Take short walks several times a day. You can start with 5 to 10 minutes, 3 or 4 times a day, and work up to longer walks. Walk on level surfaces and avoid hills and stairs until your back starts to feel better. After your back spasm starts to feel better, try to stretch your muscles every day, especially before and after exercise and at bedtime. Regular stretching can help relax your muscles. To prevent future back pain, do exercises to stretch and strengthen your back and stomach. Learn to use good posture, safe lifting techniques, and other ways to move to help you avoid back pain. When should you call for help? Call 911 anytime you think you may need emergency care. For example, call if: You are unable to move an arm or a leg at all. Call your doctor now or seek immediate medical care if: You have new or worse symptoms in your legs, belly, or buttocks. Symptoms may include: Numbness or tingling. Weakness. Pain. You lose bladder or bowel control. Watch closely for changes in your health, and be sure to contact your doctor if: You do not get better as expected. Reminders Provider Appointments None recorded. Lab None recorded. Referral None recorded. Procedures None recorded. Surgeries None recorded. Imaging None recorded. Medications Name Start Date cyclobenzaprine 10 mg tablet Take 1 tablet 3 times a day by oral route with meals for 30 days. levothyroxine 150 mcg tablet Take 1 tablet every day by oral route. Medrol (Altaf) 4 mg tablets in a dose pack Take 1 dose pk by oral route as directed. omeprazole 40 mg capsule,delayed release Take 1 capsule every day by oral route. Medications Administered None recorded. Vitals Height Weight BMI Blood Pressure 5 ft 203 lbs 39.6 kg/m2 112/70 mm[Hg] Lab Results None recorded. Allergies Code Code System Name Reaction Severity Status Onset 654981 RxNorm Afrin (Oxymetazoline) Active Problems Name Status Onset Date Source Acid Reflux Active 07/10/2018 Thyroidectomy Active 07/10/2018 Procedures None recorded. Vaccine List Vaccine Type influenza, injectable, quadrivalent 05/09/2018 Tdap 09/08/2013 Social History Smoking Status Never Smoker Past Encounters 07/10/2018 Spasm of Back Muscles Funmi Niño, RESEARCH AND DEVELOPMENT MANAGER-C: [address] [place] [address], Ph. History of Present Illness Musculoskeletal Complaint Reported By: Patient HPI: Location: pain is not radiating; pain is back and neck. Quality: sharp, aching, stabbing, throbbing, deep. Severity: no pain, worsening, severe (8-10). Aggravating factors: lifting, carrying, twisting, pushing/pulling, weightbearing, exercise, movement/positioning. Associated Symptoms: no fever/chills, no warmth, no redness, no swelling, no drainage, no ecchymosis, no weakness, no tingling, no numbness, no radiation, no catching/locking, no popping/clicking, no buckling, no grinding, no instability, no weight loss, no change in bowel/bladder habits, no headache, muscle aches Review of Systems:ROS as noted in the HPI Review of Systems Basic Reported By: Patient Physical Exam Adult Basic, Adult Female Complete Reported By: Patient Constitutional: General Appearance: healthy-appearing, well-nourished, well-developed. Level of Distress: NAD. Ambulation: ambulating normally Psychiatric: Mental Status: active and alert. Orientation: to time, to place, to person Lungs: Respiratory effort: no dyspnea, no tachypnea, no use of accessory muscles, no intercostal retractions. Auscultation: breath sounds normal Musculoskeletal:: Motor Strength and Tone: normal tone, abnormal motor strength. Joints, Bones, and Muscles: no bony abnormalities, no contractures, no malalignment, no tenderness, limited ROM. Extremities: no cyanosis, no edema, no varicosities, no palpable cord
[2018-11-24 11:50] VITALS: BP 120/84
--- NOTE | 2018-11-24 17:48 | Operative Report ---
DATE OF PROCEDURE: 11/24/2018 SURGEON: Kwame Mosley MD DIRECTOR TELEVISION: Manuel Davies PA-C. PREOPERATIVE DIAGNOSIS: Comminuted intra-articular right distal radius fracture. POSTOPERATIVE DIAGNOSIS: Comminuted intra-articular right distal radius fracture. PROCEDURE: Closed reduction, percutaneous pin fixation, right distal radius. INDICATIONS: The patient is a 38-year-old lady, who has a comminuted intra-articular right distal radius fracture. There is moderate displacement. The findings and options have been discussed. This is her dominant hand. We plan on closed reduction with percutaneous pin fixation. The risks and benefits of the procedure have been explained. She states she understands and wishes to proceed. DESCRIPTION OF PROCEDURE: The patient was brought to the operating room and placed under general anesthetic. The right upper extremity was prepped and draped in a sterile manner. A preoperative time-out was performed. A closed reduction maneuver was performed on the right distal radius. A C-arm image intensifier was used to confirm satisfactory reduction. Two 0.062 K-wires were placed from the radial styloid into the shaft of the radius. X-rays were taken, which confirmed a near anatomic reduction of the articular surface and of the previous apex volar angulation. The pins were then cut short and capped. A sterile bandage and a sugar-tong splint were applied. The patient was extubated and transported to the recovery room in stable condition. There was no blood loss. Kwame Mosley MD DR/PARUL /[id number]
== END | disposition home or self-care (01) ==
LOC: OR 07:24
PROVIDERS: ATTEND Specialist
DX: S52.571A Other intraarticular fracture of lower end of right radius, initial encounter for closed fracture (principal); X58.XXXA Exposure to other specified factors, initial encounter; Z88.8 Allergy status to other drugs, medicaments and biological substances
CPT/HCPCS: 25606; 81025; C1713; J0690; J1100; J1170; J1885; J2001; J2250; J2405; J2704; 76000

== ENCOUNTER 2020-03-28 09:42 | Emergency (ER) | payer BC ==
[~2020-03-28] VITALS: Ht 167.6 cm; Wt 103.0 kg
[~2020-03-28 09:42] MED LIST changes: -ACETAMINOPHEN/CODEINE 300MG - 30MG TAB ONE; -CEFAZOLIN SOD 1 GM/NS 50ML 50 ML IV ONE; -DEXAMETHASONE SOD PHOS INJ 4 MG/ML VIAL ONE; -FENTANYL CITRATE/PF 100MCG/2 ML INJ ONE; -HYDROMORPHONE 2MG/ML 2 MG/ML ML ONE; -KETOROLAC TROMETHAMINE 30 MG/ML VIAL ONE; -LIDOCAINE HCL 2% LOCAL INJ 5 ML SDV VIAL INJ ONE; -MIDAZOLAM HCL 2 MG/2 ML VIAL ONE; -ONDANSETRON HCL INJ 2MG/ML 2ML 2 MG/ML VIAL ONE; -PROPOFOL IV EMULSION 10 MG/ML 20 ML VIAL ONE; -SEVOFLURANE INHAL SOLN 250 ML PEN BTL ONE
[2020-03-28 10:13] LABS: BASOPHILS % 0.6 % (0.0-1.0); EOSINOPHILS # (AUTO) 0.2 (0.0-0.4); EOSINOPHILS % 3.7 % (0.0-6.0); HEMATOCRIT 26.8 % (34.2-44.1); HEMOGLOBIN 7.2 g/dL (12.0-16.0); LYMPHOCYTES # (AUTO) 1.8 (1.0-3.2); LYMPHOCYTES % 34.8 % (18.0-39.1); MEAN CORPUSCULAR HEMOGLOBIN 18.9 pg (28-32); MEAN CORPUSCULAR HGB CONC 26.9 g/dL (31-35); MEAN CORPUSCULAR VOLUME 70.5 fL (81-99); MONOCYTES # (AUTO) 0.4 (0.2-0.8); MONOCYTES % 7.2 % (4.4-11.3); NEUTROPHILS # (AUTO) 2.8 (2.1-6.9); NEUTROPHILS % 53.5 % (38.7-80.0); PLATELET COUNT 441 x10e3/uL (140-360); RED CELL DISTRIBUTION WIDTH 18.3 % (11.7-14.4)
[2020-03-28 10:21] LABS: PREGNANCY TEST, URINE NEGATIVE (NEGATIVE)
[2020-03-28 10:22] LABS: CLARITY,URINE CLEAR (CLEAR); COLOR,URINE YELLOW (YELLOW); KETONES,URINE NEGATIVE (NEGATIVE); LEUKOCYTE ESTERASE ,URINE NEGATIVE (NEGATIVE); NITRITE,URINE NEGATIVE (NEGATIVE); PROTEIN,URINE DIPSTICK TRACE (NEGATIVE)
[2020-03-28 10:23] LABS: BILIRUBIN,URINE NEGATIVE (NEGATIVE); URINE UROBILINOGEN 1 mg/dL (0.2 - 1)
[2020-03-28 10:29] LABS: BACTERIA,URINE RARE /HPF; EPITHELIAL CELLS,URINE FEW /LPF; RBC,URINE 0-5 /HPF (0-5); WBC,URINE (MAN) 0-5 /HPF (0-5)
[2020-03-28 10:30] LABS: ALANINE AMINOTRANSFERASE 22 IU/L (0-55); ALBUMIN 3.6 g/dL (3.5-5.0); ALBUMIN/GLOBULIN RATIO 0.9 (0.8-2.0); ALKALINE PHOSPHATASE 80 IU/L (40-150); ANION GAP 11.6 mmol/L (8-16); BLOOD UREA NITROGEN 11 mg/dL (7-26); BUN/CREATININE RATIO 17 (6-25); CALCIUM 8.6 mg/dL (8.4-10.2); CARBON DIOXIDE 24 mmol/L (22-29); CHLORIDE 106 mmol/L (98-107); CREATININE, SERUM 0.64 mg/dL (0.57-1.11); EST GLOMERULAR FILTRATION RATE > 60 ML/MIN (60-); GLUCOSE 89 mg/dL (74-118); POTASSIUM 3.6 mmol/L (3.5-5.1); SODIUM 138 mmol/L (136-145)
--- NOTE | 2020-03-28 11:04 | Emergency Department Note ---
History of Present Illnes History of Present Illness Chief Complaint: General Medicine Complaints History of Present Illness This is a 39 year old female . Historian: Patient Arrival Mode: Car Senior Net Web Developer Required: No Onset (how long ago): week(s) (2) Severity: moderate Onset quality: gradual Duration (how long): week(s) (2) Timing of current episode: constant Progression: unchanged Chronicity: new Relieving factors: none Exacerbating factors: none Associated symptoms: Reports denies other symptoms Treatments prior to arrival: none (KANDY FRANCO) Past Medical/Family History Physician Review I have reviewed the patient's past medical and family history. Any updates have been documented here. (KANDY FRANCO) Past Medical History Recent Fever: No Clinical Suspicion of Infectio: No New/Unexplained Change in Ment: No Past Medical History: Hypothyroidism Other Medical History: THYROID CA Past Surgical History: Tubal Ligation, Other Surgery: THYROIDECTOMY GASTRIC SLEEVE VOCAL CORDS RIGHT WRIST (KANDY FRANCO) Social History Smoking Cessation: Never Smoker Counseling Performed: No Alcohol Use: Social Any Illegal Drug Use: No TB Exposure/Symptoms: No Physically hurt or threatened: No (KANDY FRANCO) Review of Systems ROS Narrative Patient is a 39 year old female that presents with anemia. Patinet states she was sent by Dr Roberto for a Hgb 7.2. Patient states she has heavy cycles and last cycle was . Patinet denies SOB, CP or Dizziness (KANDY FRANCO) Review of Systems Constitutional: Reports no symptoms EENTM: Reports no symptoms Cardiovascular: Reports no symptoms Respiratory: Reports no symptoms Gastrointestinal: Reports no symptoms Genitourinary: Reports no symptoms Musculoskeletal: Reports no symptoms Integumentary: Reports no symptoms Neurological: Reports no symptoms Psychological: Reports no symptoms Endocrine: Reports no symptoms Hematological/Lymphatic: Reports no symptoms (KANDY FRANCO) Physical Exam Related Data Allergies: Coded Allergies: oxymetazoline (Verified Allergy, Intermediate, 11/23/18) HIVES, RASH, ITCHING Triage Vital Signs Vital Signs Date Time Temp Pulse Resp B/P (MAP) Pulse Ox O2 Delivery O2 Flow Rate FiO2 03/28/20 09:45 98.3 75 18 119/78 100 Room Air Vital signs reviewed: Yes (KANDY FRANCO) Physical Exam CONSTITUTIONAL Constitutional: Present well-developed, Present well-nourished HENT HENT: Present normocephalic, Present atraumatic, Present oropharynx clear/moist, Present nose normal HENT L/R: Present left ext ear normal, Present right ext ear normal EYES Eyes: Reports PERRL, Reports conjunctivae normal NECK Neck: Present ROM normal PULMONARY Pulmonary: Present effort normal, Present breath sounds normal CARDIOVASCULAR Cardiovascular: Present regular rhythm, Present heart sounds normal, Present capillary refill normal, Present normal rate GASTROINTESTINAL Abdominal: Present soft, Present nontender, Present bowel sounds normal GENITOURINARY Genitourinary: Present exam deferred SKIN Skin: Present warm, Present dry MUSCULOSKELETAL Musculoskeletal: Present ROM normal NEUROLOGICAL Neurological: Present alert, Present oriented x 3, Present no gross motor or sensory deficits PSYCHOLOGICAL Psychological: Present mood/affect normal, Present judgement normal (KANDY FRANCO) Results Laboratory Lab results reviewed: Yes (OCTAVIO OLMOS NP) Imaging Imaging results reviewed: Yes (OCTAVIO OLMOS NP) Assessment & Plan Medical Decision Making MDM Blood work and FU with [employer] (OCTAVIO OLMOS NP) Reassessment Reassessment time: 11:01 Reassessment Patient with no complaints, denies SOB and dizziness. Will DC home with [employer] FU (OCTAVIO OLMOS NP) Assessment & Plan Final Impression: (1) Menometrorrhagia (2) Iron (Fe) deficiency anemia (OCTAVIO OLMOS NP) Depart Disposition: HOME, SELF-CARE Last Vital Signs Date Time Temp Pulse Resp B/P (MAP) Pulse Ox O2 Delivery O2 Flow Rate FiO2 03/28/20 09:45 98.3 75 18 119/78 100 Room Air (KANDY FRANCO) Home Meds Reported Medications Ibuprofen (IBUPROFEN) 400 Mg Tablet, 800 MG PO PRN, TAB 11/23/18 Acetaminophen With Codeine (TYLENOL WITH CODEINE #3 TABLET) 1 Each Tablet, 300 MG PO PRN, TAB 11/23/18 Levothyroxine Sodium (LEVOTHYROXINE SODIUM) 112 Mcg Tablet, 150 MCG PO DAILY, #30 TAB 11/23/18 Omeprazole (OMEPRAZOLE) 40 Mg Capsule., 40 MG PO DAILY 11/23/18 KANDY FRANCO Mar 28, 2020 09:53 OCTAVIO OLMOS NP Mar 28, 2020 11:04
[2020-03-28 11:42] LABS: HYPOCHROMASIA MODERATE; POIKILOCYTOSIS SLIGHT
[2020-03-28 11:43] LABS: ANISOCYTOSIS SLIGHT; MICROCYTOSIS MODERATE
[2020-03-28 11:44] LABS: PLATELET ESTIMATE SLIGHTLY INCREASED; PLATELET MORPHOLOGY COMMENT NORMAL; SCHISTOCYTES RARE
== END 2020-03-28 11:44 | disposition home or self-care (01) ==
LOC: ER 09:48
DX: D50.9 Iron deficiency anemia, unspecified (principal); N92.1 Excessive and frequent menstruation with irregular cycle; Z85.850 Personal history of malignant neoplasm of thyroid; E03.9 Hypothyroidism, unspecified; Z98.84 Bariatric surgery status
CPT/HCPCS: 36415; 80053; 81001; 81025; 85025; 86850; 86900; 99283

== ENCOUNTER → 2020-07-11 | Day surgery (SDC) | payer BC ==
[2020-07-07 11:21] LABS: BASOPHILS % 0.5 % (0.0-1.0); EOSINOPHILS # (AUTO) 0.2 (0.0-0.4); EOSINOPHILS % 3.3 % (0.0-6.0); HEMATOCRIT 29.2 % (34.2-44.1); HEMOGLOBIN 8.3 g/dL (12.0-16.0); LYMPHOCYTES # (AUTO) 1.2 (1.0-3.2); LYMPHOCYTES % 19.1 % (18.0-39.1); MEAN CORPUSCULAR HEMOGLOBIN 21.4 pg (28-32); MEAN CORPUSCULAR HGB CONC 28.4 g/dL (31-35); MEAN CORPUSCULAR VOLUME 75.5 fL (81-99); MONOCYTES # (AUTO) 0.5 (0.2-0.8); MONOCYTES % 7.2 % (4.4-11.3); NEUTROPHILS # (AUTO) 4.5 (2.1-6.9); NEUTROPHILS % 69.7 % (38.7-80.0); PLATELET COUNT 491 x10e3/uL (140-360); RED BLOOD COUNT 3.87 x10e6/uL (3.6-5.1); RED CELL DISTRIBUTION WIDTH 18.7 % (11.7-14.4)
[2020-07-07 11:47] LABS: ALANINE AMINOTRANSFERASE 19 IU/L (0-55); ALBUMIN 3.5 g/dL (3.5-5.0); ALKALINE PHOSPHATASE 93 IU/L (40-150); ANION GAP 11.2 mmol/L (8-16); BLOOD UREA NITROGEN 15 mg/dL (7-26); BUN/CREATININE RATIO 24 (6-25); CALCIUM 8.8 mg/dL (8.4-10.2); CARBON DIOXIDE 25 mmol/L (22-29); CHLORIDE 108 mmol/L (98-107); CREATININE, SERUM 0.62 mg/dL (0.57-1.11); EST GLOMERULAR FILTRATION RATE > 60 ML/MIN (60-); GLUCOSE 88 mg/dL (74-118); POTASSIUM 4.2 mmol/L (3.5-5.1); SODIUM 140 mmol/L (136-145)
[~2020-07-11] MED LIST changes: +ACETAMINOPHEN 1000 MG/100 ML 100 ML IV ONE; +BUPIVACAINE HCL 0.5% INJ 30 ML VIAL INJ ONE; +CEFAZOLIN SOD 1 GM/NS 50ML 100 ML IV ONE; +DEXAMETHASONE SOD PHOS INJ 4 MG/ML VIAL ONE; +FENTANYL CITRATE/PF 100MCG/2 ML INJ ONE; +FERREX 150150 MG PO; +GLYCOPYRROLATE INJ 0.2 MG/ML VIAL ONE; +HYDROCODONE/APAP 5MG-325MG TAB ONE; +INDIGOTINDISULFONATE SODIUM 8 MG/ML AMP IJ ONE; +LIDOCAINE HCL 2% JELLY 5 ML TUBE ONE; +LIDOCAINE HCL 2% LOCAL INJ 5 ML SDV VIAL INJ ONE; +MEPERIDINE HCL INJ 25 MG/ML VIAL ONE; +MICROFIBRILLER COLLAGEN HEMOSTAT 1 GM POWDER TP ONE; +MIDAZOLAM HCL 2 MG/2 ML VIAL ONE; +MONTELUKAST SOD10 MG PO; +MULTI-VITAMIN1 EACH; +NEOSTIGMINE 1 MG/ML 10ML VIAL ONE; +ONDANSETRON HCL INJ 2MG/ML 2ML 2 MG/ML VIAL ONE; +PROBIOTIC; +PROPOFOL IV EMULSION 10 MG/ML 20 ML VIAL ONE; +ROCURONIUM BROMIDE 10 MG/ML 5ML VIAL IV ONE; +SCOPOLAMINE 1.5 MG PATCH ONE; +SEVOFLURANE INHAL SOLN 250 ML PEN BTL ONE; +TRIAMCINOLONE ACET 40 MG/ML VIAL ONE; +VIT C; +VITAMIN D250 MCG; +[UNRECOGNIZED DRUG - OTHER]
[2020-07-11 11:39] VITALS: BP 127/86
--- NOTE | 2020-07-11 14:26 | Operative Report ---
DATE OF PROCEDURE: 07/11/2020 SURGEON: Diamond OCASIO MD ASSISTANTS: 1. Dr. Karrie Dominguez. 2. Dr. Airam Amin. PREOPERATIVE DIAGNOSES: 1. Fibroid uterus. 2. Menorrhagia to anemia. 3. 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 POSTOPERATIVE DIAGNOSES: 1. Fibroid uterus. 2. Menorrhagia to anemia. 3. 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 PROCEDURES PERFORMED: Total laparoscopic hysterectomy with bilateral salpingo-oophorectomy. ANESTHESIA: General. ESTIMATED BLOOD LOSS: 100 mL. COMPLICATIONS: None. FINDINGS: The patient on exam under anesthesia was revealed to have an approximately 16-week size fibroid uterus with good mobility. Laparoscopic findings included an enlarged anteverted uterus with normal bilateral adnexa. A significant amount of adhesions was noted between the anterior uterus and cervix, and the patient's bladder. SPECIMENS: Uterus with attached cervix and bilateral fallopian tubes and ovaries. INDICATIONS: The patient is a 39-year-old, 6, para 6, with a history of fibroid uterus resulting in menorrhagia to anemia. She has failed multiple medical treatments and desires definitive surgical management. 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 PROCEDURE NOTE: Prior to the operation, the risks, benefits, indications, and alternatives were discussed and consent was reconciled. The patient was brought to the operating room and was properly identified. She was placed on the operating table and general anesthesia was performed by the anesthesiologist. The patient was then repositioned into dorsal lithotomy position in adjustable Alfa stirrups, and prepped and draped in typical sterile fashion for a laparoscopic hysterectomy. A time-out was then performed. An exam under anesthesia was performed and a Scott catheter was placed as a means to drain the bladder. A weighted speculum was then placed in the vagina with visualization of the cervix, which was grasped along the anterior lip using a single-tooth tenaculum; this facilitated placement of a VCare uterine manipulator followed by removal of the single-tooth and speculum. Attention was then turned to the laparoscopic portion of the procedure. The supraumbilical skin was infiltrated with 0.5% Marcaine with epinephrine and incised using scalpel to create a 5 mm incision. A 5 mm trocar was placed under direct visualization with the laparoscope. After insufflation with a Veress needle, the abdomen and pelvis were then inspected with the above-noted findings. Secondary 5 mm trocars were then placed in the left and right lower quadrants under direct visualization. The umbilical trocar was then replaced with a 10 mm trocar and a 10 mm laparoscopic was used in place of a 5 mm one. After thorough inspection of the pelvis, both ureters were visualized and peristalsis noted, their course was well away from the planned procedure. A LigaSure device was then introduced and used to coagulate and divide the right infundibulopelvic ligament; this incision was carried along the mesosalpinx to the broad ligament. The LigaSure was then used to coagulate and divide the right round ligament and this incision was continued along the anterior leaf of the broad ligament undermining and dividing the vesicouterine peritoneal reflection laterally to medially to the right of the midline. The posterior leaf of the broad ligament was then coagulated and divided to the level of the utero-ovarian ligament. Attention was then turned to the left and then infundibulopelvic ligament, which was likewise coagulated and divided with the LigaSure and with continuation of this incision along the mesosalpinx down to the broad ligament, the left round ligament was then coagulated and divided, and the incision continued along the anterior leaf of the broad ligament undermining and dividing the vesicouterine peritoneal reflection laterally to medially with incision from the right. The posterior leaf of the broad ligament was then coagulated and divided to the level of the utero-ovarian ligament. Sharp and blunt dissection were then used to mobilize the bladder off the lower uterine segment and lyse adhesions between the two. Both uterine vessels were then skeletonized, coagulated, and divided with the LigaSure down to the level of the internal cervical os. All pedicles were inspected and found to be hemostatic. The monopolar and the LigaSure was then used to create the colpotomy incision against the VCare cup. The uterus with attached adnexa was then delivered through the vagina without difficulty. A balloon was placed in the vagina to prevent escape of abdominal insufflation. Attention was then returned to the abdomen, where the pneumoperitoneum was reestablished. The abdomen and pelvis were copiously irrigated with normal saline, and all sites were noted to be hemostatic. The 10 mm laparoscope was replaced with a 5 mm laparoscope. The vaginal cuff was then closed with a #0 V-Loc suture using an Endo Stitch device through the umbilical port. The vaginal cuff was inspected and found to be hemostatic. A piece of Surgicel was introduced through the umbilical port and placed along the vaginal cuff. The umbilical port site was then removed under direct visualization with the laparoscope. A single suture of 0 Vicryl was then placed to reapproximate the fascia at this site. The abdomen was then deflated and remaining two ports were removed. All three abdominal incisions were closed with 4-0 Monocryl in a subcuticular fashion and covered with Dermabond. The patient was then awakened from anesthesia and extubated in the OR. She was authorized to be taken to the PACU in good condition, having tolerated the procedure well. All sponge, lap, needle, and instrument counts were correct x2 at the end of the procedure. MD PARVEZ Camacho/PARUL /[id number]
== END | disposition home or self-care (01) ==
LOC: OR 05:31
PROVIDERS: ATTEND Obstetrics & Gynecology Obstetrics
DX: D25.9 Leiomyoma of uterus, unspecified (principal); D64.9 Anemia, unspecified; M79.7 Fibromyalgia; E03.9 Hypothyroidism, unspecified; K21.9 Gastro-esophageal reflux disease without esophagitis; R49.0 Dysphonia; Z88.8 Allergy status to other drugs, medicaments and biological substances; Z01.812 Encounter for preprocedural laboratory examination; Z11.59 Encounter for screening for other viral diseases
CPT/HCPCS: 36415 ×2; 58570; 80053; 84702 ×2; 85025; 88307; J0131; J0690; J1100; J2001 ×2; J2175; J2250; J2405; J2704; J2710; J3010; J3301; U0002